=== PATIENT | female | born 1990 | race Caucasian/White ===

== ENCOUNTER → 2016-11-28 | Outpatient (CLI) | payer BC | LOC: M LAB 06:43 | PROVIDERS: ATTEND Advanced Practice Midwife | DX: Z34.83 Encounter for supervision of other normal pregnancy, third trimester (principal) ==

== ENCOUNTER → 2016-12-01 | Outpatient (CLI) | payer BC ==
--- NOTE | 2016-12-01 23:54 | REP ---
Clinical: Anatomical evaluation. Comparison: 11/01/2016 . Findings: Examination demonstrates a single live intrauterine in cephalic presentation. motion is identified by technologist. Placenta with 3.6 cm right anterior intramural fibroid is noted posteriorly and grade one without evidence for placenta previa or abruption. Amniotic fluid volume is normal. Cervix measures 3.6 cm in length and appears closed. No evidence for nuchal cord. Gestational age by LMP 27 weeks 3 day with AJAY eight 02/27/2017 . Gestational age by current measurements 28 weeks 3 days with AJAY 02/20/2017 FHR equals 153 beats per minute. Amniotic fluid index equals 15.7 cm Estimated weight 1279 grams ( 77th percentile). Anatomical assessment demonstrates normal structures including cranium, choroid plexus, cavum, cerebellum/posterior fossa, facial features, lungs, four-chamber heart/ventricular outflow tracts, diaphragm, stomach, cord insertion/three-vessel cord, kidneys/bladder. Impression: 1. Single live intrauterine in cephalic presentation demonstrating appropriate oval growth. 2. A 3.6 cm placental fibroid. 3. In conjunction with prior examination anatomical assessment is complete and normal. Signed by Eddy Clifton MD 12/01/2016 11:46 P
== END ==
LOC: M RAD 11:28
PROVIDERS: ATTEND Obstetrics & Gynecology
DX: Z34.82 Encounter for supervision of other normal pregnancy, second trimester (principal)

== ENCOUNTER 2016-12-15 15:54 | Outpatient (CLI) | payer BC ==
[~2016-12-15] VITALS: Ht 160 cm; Wt 95.0 kg
[2016-12-15 16:15] VITALS: BP 127/61
[2016-12-15] MEDS ORDERED: ACETAMINOPHEN 500 MG TAB PO PRN (17:00)
[2016-12-15 17:17] LABS: BASO % 0.2 % (0.0-1.0); EOS # 0.2 K/mm3 (0.0-0.50); EOS % 1.7 % (0.0-3.0); LARGE UNSTAINED CELL # 0.2 K/mm3 (0.0-0.4); LARGE UNSTAINED CELL % 1.6 % (0.0-4.0); LYMPH # 2.1 K/mm3 (1.5-6.5); LYMPH % 19.7 % (24.0-44.0); MEAN CORPUSCULAR HEMOGLOBIN 29.5 pg (27.0-33.0); MEAN CORPUSCULAR HGB CONC 34.8 g/dl (32.0-36.5); MEAN CORPUSCULAR VOLUME 84.6 fl (80.0-96.0); MONO # 0.4 K/mm3 (0.0-0.8); MONO % 3.7 % (0.0-5.0); NEUTROPHILS % 73.1 % (36.0-66.0); PLATELET COUNT, AUTOMATED 254 k/mm3 (150-450); RED CELL DISTRIBUTION WIDTH 12.7 % (11.5-14.5); WHITE BLOOD COUNT 10.9 K/mm3 (4.0-10.0)
[2016-12-15] MEDS ORDERED: ACET50TA PO (17:55)
[2016-12-15] MEDS ORDERED: PHEN1SUP6 PO (17:55)
[2016-12-15] MEDS ORDERED: DICL10TA PO (17:55)
--- NOTE | 2016-12-15 19:30 | REPUSA ---
CLINICAL HISTORY: Evaluate amniotic fluid level. TECHNIQUE: Realtime sonographic images were obtained in multiple projections. FINDINGS: Limited ultrasound evaluation reveals a live, intrauterine gestation in a breech presentation, dated 29 w 4 d . The heart rate is 147. The placenta is posterior and placenta previa is not identified. Subjectively, the amniotic fluid vol ume appears normal. The ZORAN is 19.3 which is normal for gestational age. Nuchal cord was not seen. Th e S/D ratio is 2.96, which is normal for gestational age. Anatomical survey was neither requested nor performed on this exam. There is an anterior fibroid seen measuring 2.6 x 1.6 x 2.7 cm. IMPRESSION: Single live IUP. Normal ZORAN. Thank you for your kind referral of this patient. We appreciate the opportunity to participate in thi s patient's care.
== END 2016-12-15 20:00 | disposition home or self-care (01) ==
LOC: M LDO 15:54
PROVIDERS: ATTEND Advanced Practice Midwife
DX: R10.31 Right lower quadrant pain (principal); Z3A.29 29 weeks gestation of pregnancy

== ENCOUNTER → 2016-12-26 | Outpatient (REF) | payer BC ==
[~2016-12-26] MED LIST: ACET50TA PO; DICL10TA PO; PHEN1SUP6 PO
== END ==
LOC: M LAB REF 13:24
PROVIDERS: ATTEND Advanced Practice Midwife
DX: Z34.83 Encounter for supervision of other normal pregnancy, third trimester (principal)

== ENCOUNTER 2017-02-03 09:01 | Outpatient (CLI) | payer BC ==
[~2017-02-03] VITALS: Ht 160 cm; Wt 97.0 kg
[~2017-02-03 09:01] MED LIST changes: -ACET500C PO; -FIOR1CAP PO; -OMEP10CASR PO; -REGL10TA6 PO; -ZITHTAB PO
[2017-02-03] MEDS ORDERED: REGL10TA6 PO (09:12)
[2017-02-03] MEDS ORDERED: OMEP10CASR PO (09:12)
[2017-02-03] MEDS ORDERED: ACET500C PO (09:13)
[2017-02-03 10:47] LABS: MEAN CORPUSCULAR HEMOGLOBIN 27.8 pg (27.0-33.0); MEAN CORPUSCULAR HGB CONC 33.4 g/dl (32.0-36.5); MEAN CORPUSCULAR VOLUME 83.2 fl (80.0-96.0); RED CELL DISTRIBUTION WIDTH 13.1 % (11.5-14.5); WHITE BLOOD COUNT 12.2 K/mm3 (4.0-10.0)
[2017-02-03 11:12] LABS: ALT/SGPT 22 U/L (12-78); AST/SGOT 18 U/L (15-37); BILIRUBIN,TOTAL 0.2 MG/DL (0.2-1.0); CREATININE FOR GFR 0.54 MG/DL (0.55-1.02); GLOMERULAR FILTRATION RATE > 60.0 (>60); URIC ACID 4.7 MG/DL (2.6-6.0)
[2017-02-03] MEDS ORDERED: FIORICET TAB PO ONE (11:45)
[2017-02-03] MEDS ORDERED: ZITHTAB PO (12:51)
== END 2017-02-03 12:45 | disposition home or self-care (01) ==
LOC: M LDO 09:01
PROVIDERS: ATTEND Obstetrics & Gynecology
DX: O13.3 Gestational [pregnancy-induced] hypertension without significant proteinuria, third trimester (principal); Z3A.36 36 weeks gestation of pregnancy

== ENCOUNTER → 2017-02-03 | Outpatient (REF) | payer BC ==
[~2017-02-03] MED LIST changes: +ACET500C PO; +FIOR1CAP PO; +OMEP10CASR PO; +REGL10TA6 PO; +ZITHTAB PO
== END ==
LOC: M LAB REF 13:20
PROVIDERS: ATTEND Advanced Practice Midwife
DX: Z34.83 Encounter for supervision of other normal pregnancy, third trimester (principal)

== ENCOUNTER → 2017-02-05 | Outpatient (CLI) | payer BC ==
[2017-02-05] VITALS (7 sets, daily range): BP systolic 119–133; BP diastolic 69–82
[~2017-02-05] MED LIST changes: +ACET500C PO; +FIOR1CAP PO; +IBUP-1114 PO; +OMEP10CASR PO; +REGL10TA6 PO; +ZITHTAB PO
== END | disposition home or self-care (01) ==
LOC: M LDO 13:19
PROVIDERS: ATTEND Obstetrics & Gynecology
DX: O13.3 Gestational [pregnancy-induced] hypertension without significant proteinuria, third trimester (principal); Z3A.36 36 weeks gestation of pregnancy

== ENCOUNTER 2017-02-06 11:51 | Inpatient (IN) | payer BC ==
[2017-02-06] VITALS (7 sets, daily range): BP systolic 121–139; BP diastolic 63–81
[~2017-02-06] VITALS: Ht 160 cm; Wt 96.0 kg
[~2017-02-06 11:51] MED LIST changes: -FIOR1CAP PO; -IBUP-1114 PO
[2017-02-06] MEDS ORDERED: FIOR1CAP PO (12:14)
[2017-02-06] MEDS ORDERED: LACTATED RINGER'S 1000 ML IV STA (12:29)
[2017-02-06] MEDS ORDERED: miSOPROStol 50 MCG 1/2 TAB (S0191) SL ONE ×2 (13:00→18:30)
[2017-02-06 14:18] LABS: MEAN CORPUSCULAR HEMOGLOBIN 28.7 pg (27.0-33.0); MEAN CORPUSCULAR HGB CONC 34.5 g/dl (32.0-36.5); MEAN CORPUSCULAR VOLUME 83.3 fl (80.0-96.0); RED CELL DISTRIBUTION WIDTH 13.4 % (11.5-14.5); WHITE BLOOD COUNT 11.2 K/mm3 (4.0-10.0)
[2017-02-06 14:23] LABS: ALT/SGPT 28 U/L (12-78); AST/SGOT 23 U/L (15-37); BILIRUBIN,TOTAL 0.1 MG/DL (0.2-1.0); CREATININE FOR GFR 0.62 MG/DL (0.55-1.02); GLOMERULAR FILTRATION RATE > 60.0 (>60); URIC ACID 5.3 MG/DL (2.6-6.0)
[2017-02-06] MEDS ORDERED: miSOPROStol 25 MCG 1/4 TAB (S0191) PV ONE (23:00)
[2017-02-06] MEDS ORDERED: diphenhydrAMINE 25 MG CAP PO ONE (23:00)
[2017-02-07] VITALS (42 sets, daily range): BP systolic 107–187; BP diastolic 56–92
[2017-02-07] MEDS ORDERED: miSOPROStol 25 MCG 1/4 TAB (S0191) PV ONE (05:45)
[2017-02-07] MEDS ORDERED: OXYTOCIN DRIP 30 UNITS in APPROPRIATE DILUENT 1 EA IV SCH (13:15)
[2017-02-07] MEDS: LR 1,000 ML IV SCH (13:48)
[2017-02-07] MEDS ORDERED: ACETAMINOPHEN 500 MG TAB PO PRN (14:00)
[2017-02-07] MEDS ORDERED: LACTATED RINGER'S 1000 ML IV ONE (20:30)
[2017-02-07 20:49] LABS: MEAN CORPUSCULAR HEMOGLOBIN 27.5 pg (27.0-33.0); MEAN CORPUSCULAR HGB CONC 33.7 g/dl (32.0-36.5); MEAN CORPUSCULAR VOLUME 81.4 fl (80.0-96.0); RED CELL DISTRIBUTION WIDTH 13.1 % (11.5-14.5); WHITE BLOOD COUNT 13.5 K/mm3 (4.0-10.0)
[2017-02-07] MEDS ORDERED: FENTANYL 2MCG/ML ROPIVACAINE 0.2% NACL 250 ML CADD As Ordered ONE (20:52)
[2017-02-07] MEDS ORDERED: diphenhydrAMINE INJ 50MG/ML VIAL (J1200) IV PRN (22:45)
[2017-02-07] MEDS ORDERED: ePHEDrine SULFATE 25 MG/5 ML(5MG/ML) SYRINGE IV PRN (22:45)
[2017-02-07] MEDS ORDERED: EPIDURAL COMMENT XX SCH (22:45)
[2017-02-07] MEDS ORDERED: REFRIGERATOR IV KEYS XX PRN (22:45)
[2017-02-07] MEDS ORDERED: NALOXONE INJ 0.4 MG/1 ML VIAL (J2310) IV PRN (22:45)
[2017-02-07] MEDS ORDERED: FENTANYL/ROPIVACAINE/NACL CADD 250 ML EPIDURAL SCH (22:45)
[2017-02-07] MEDS ORDERED: ONDANSETRON 4MG/2ML VIAL (J2405) IV PRN (22:45)
[2017-02-07] MEDS ORDERED: LACTATED RINGER'S 1000 ML IV PRN (22:45)
[2017-02-07] MEDS ORDERED: EPIDURAL/PCA KEYS XX PRN (22:45)
[2017-02-08] VITALS (24 sets, daily range): BP systolic 108–148; BP diastolic 57–80
[2017-02-08] MEDS: LR 1,000 ML IV SCH (00:33)
[2017-02-08] MEDS ORDERED: OXYTOCIN DRIP 30 UNITS in APPROPRIATE DILUENT 1 EA IV SCH (07:58)
[2017-02-08] MEDS ORDERED: ACETAMINOPHEN 500 MG TAB PO PRN (08:00)
[2017-02-08] MEDS ORDERED: RHOGAM 300 MCG (1500 IU) INJ (J2790) IM SCH (08:00)
[2017-02-08] MEDS ORDERED: DOCUSATE SODIUM 100 MG CAP PO PRN (08:00)
[2017-02-08] MEDS ORDERED: IBUPROFEN 800 MG TAB PO PRN (08:00)
[2017-02-08] MEDS ORDERED: MEASLES,MUMPS,RUBELLA VACCINE INJ (MMR-II) (90707) SC SCH (08:00)
[2017-02-08] MEDS ORDERED: DIBUCAINE 1% OINTMENT 30GM TOP PRN (08:00)
--- NOTE | 2017-02-08 08:15 | DN ---
DATE: 02/08/2017 Niurka is a 1, para 1-0-1-1 now who was admitted to labor and delivery for induction of labor due to gestational hypertension. She did utilize an epidural for her labor coping. She progressed to full dilation at 0610 hours, pushed to a normal spontaneous vaginal delivery of a live female in OA position with restitution to LOT position at 0717 hours. There was no nuchal cord. The shoulders delivered with gentle downward guidance and corpus immediately followed. [place] was placed on maternal abdomen crying and active. Cord was clamped times two and cut by the father of the baby. Cord gases and cord blood was obtained. After approximately 30 minutes of expectant management, Dr. Turcios was consulted to come in for manual removal of retained placenta. Manual removal was made at 0749 hours without incident. Estimated blood loss 350 mL. Uterine hemostasis achieved with IV Pitocin, rapid infusion and uterine fundal massage. female weighed 6 pounds 6 ounces, 2888 grams, scores of 8 and 9. Mom plans to breastfeed. Family is undecided as to what to name their daughter as of this time. At the close of delivery, lap counts, instrument counts, needle counts were correct and verified.
[2017-02-08 08:31] LABS: CORD GAS ABE A -8.4; CORD GAS HCO3 A 19.5 MEQ/L; CORD GAS O2 SAT A 67.2 %; CORD GAS PCO2 A 49.2 mmHg; CORD GAS PH A 7.217 UNITS; CORD GAS PO2 A 31.4 mmHg; CORD GAS SBC A 17.1 MEQ/L; CORD GAS TCO2 A 21.1 MEQ/L
[2017-02-08 08:33] LABS: CORD GAS ABE V -6.8; CORD GAS HCO3 V 19.4 MEQ/L; CORD GAS O2 SAT V 69.2 %; CORD GAS PCO2 V 41.6 mmHg; CORD GAS PH V 7.287 UNITS; CORD GAS PO2 V 30.2 mmHg; CORD GAS SBC V 18.4 MEQ/L; CORD GAS TCO2 V 20.7 MEQ/L
[2017-02-08] MEDS: PRENATAL VITAMIN TAB PO SCH (09:00)
[2017-02-09 06:09] VITALS: BP 123/69
[2017-02-09] MEDS: PRENATAL VITAMIN TAB PO SCH (09:00)
[2017-02-09] MEDS ORDERED: IBUP-1114 PO (10:03)
== END 2017-02-09 12:10 | disposition home or self-care (01) | DRG 560 ==
LOC: M LDI 11:51 → M OBS 02-08 09:53
PROVIDERS: ADMIT Obstetrics & Gynecology; ATTEND Obstetrics & Gynecology
PROC: 3E0D7GC Introduction of Other Therapeutic Substance into Mouth and Pharynx, Via Natural or Artificial Opening (ICD-10-PCS; 2017-02-06)
PROC: 10E0XZZ Delivery of Products of Conception, External Approach (ICD-10-PCS; principal; 2017-02-08)
DX: O13.4 Gestational [pregnancy-induced] hypertension without significant proteinuria, complicating childbirth (principal); Z37.0 Single live birth; Z3A.37 37 weeks gestation of pregnancy; Z79.899 Other long term (current) drug therapy

== ENCOUNTER 2017-06-21 12:32 | Outpatient (RCR) | payer BC ==
[~2017-06-21 12:32] MED LIST changes: +FIOR1CAP PO; +IBUP-1114 PO
== END 2017-06-26 ==
LOC: M PT 12:32
PROVIDERS: ATTEND Physician Assistant Medical
DX: Z51.89 Encounter for other specified aftercare (principal); M25.511 Pain in right shoulder

== ENCOUNTER 2017-07-19 12:30 | Outpatient (RCR) | payer BC | END 2017-07-27 | LOC: M PT 12:30 | PROVIDERS: ATTEND Physician Assistant Medical | DX: Z51.89 Encounter for other specified aftercare (principal); M25.511 Pain in right shoulder ==

== ENCOUNTER → 2017-12-07 | Outpatient (REF) | payer BC ==
[2017-12-07 20:15] LABS: FREE T4 0.87 NG/DL (0.76-1.46)
[2017-12-07 20:15] LABS: THYROID STIMULATING HORMONE 0.718 uIU/ML (0.358-3.740)
== END ==
LOC: M SFHCADAM 14:08
DX: K59.00 Constipation, unspecified (principal); E66.09 Other obesity due to excess calories
CPT/HCPCS: 84443

== ENCOUNTER → 2018-03-13 | Outpatient (CLI) | payer BC ==
[2018-03-14 08:09] LABS: HERPES ZOSTER, VARICELLA IgG 3786 index (Immune >165)
== END ==
LOC: M LAB 12:45
DX: Z20.820 Contact with and (suspected) exposure to varicella (principal)
CPT/HCPCS: 86787

== ENCOUNTER → 2018-12-17 | Outpatient (REF) | payer OTHER ==
[~2018-12-17] MED LIST changes: -ACET50TA PO; +MAPA500T2 PO
[2018-12-22 14:47] LABS: HPV HYBRID CAPTURE II Negative (Negative)
== END ==
LOC: M LAB REF 10:54
PROVIDERS: ATTEND Advanced Practice Midwife
DX: Z12.4 Encounter for screening for malignant neoplasm of cervix (principal)

== ENCOUNTER → 2019-02-06 | Outpatient (REF) | payer OTHER | LOC: M SFHCLERA 20:15 | PROVIDERS: ATTEND Nurse Practitioner Family | DX: R53.81 Other malaise (principal) ==

== ENCOUNTER → 2019-06-17 | Outpatient (REF) | payer OTHER | LOC: M SFHCADAM 19:30 | PROVIDERS: ATTEND Physician Assistant Medical | DX: J02.9 Acute pharyngitis, unspecified (principal) ==

== ENCOUNTER → 2019-11-28 | Outpatient (REF) | payer OTHER | LOC: M LAB REF 18:09 | PROVIDERS: ATTEND Dermatology | DX: D23.30 Other benign neoplasm of skin of unspecified part of face (principal); D23.62 Other benign neoplasm of skin of left upper limb, including shoulder; D23.5 Other benign neoplasm of skin of trunk ==

== ENCOUNTER → 2020-05-01 | Outpatient (REF) | payer OTHER ==
[2020-05-01 17:56] LABS: BASO # 0.1 10^3/uL (0.0-0.2); BASO % 0.6 % (0.0-1.0); EOS # 0.2 10^3/uL (0.0-0.5); HEMATOCRIT 43.3 % (36.0-47.0); HEMOGLOBIN 14.7 g/dl (12.0-15.5); LYMPH # 2.5 10^3/uL (1.5-5.0); MEAN CORPUSCULAR HEMOGLOBIN 29.9 pg (27.0-33.0); MEAN CORPUSCULAR HGB CONC 33.9 g/dl (32.0-36.5); MEAN CORPUSCULAR VOLUME 88.2 fl (80.0-96.0); MONO # 0.6 10^3/uL (0.0-0.8); MONO % 7.1 % (0.0-5.0); NEUTROPHILS # 4.9 10^3/uL (1.5-8.5); NEUTROPHILS % 60.1 % (36.0-66.0); PLATELET COUNT, AUTOMATED 301 10^3/uL (150-450); RED BLOOD COUNT 4.91 10^6/uL (4.00-5.40); WHITE BLOOD COUNT 8.2 10^3/uL (4.0-10.0)
== END ==
LOC: M SFHCADAM 15:44
PROVIDERS: ATTEND Physician Assistant Medical
DX: R53.83 Other fatigue (principal)

== ENCOUNTER → 2020-09-04 | Outpatient (CLI) | payer SELFPAY | LOC: M LABSMTC 13:00 | PROVIDERS: ATTEND Pediatrics | DX: Z20.828 Contact with and (suspected) exposure to other viral communicable diseases (principal) ==

== ENCOUNTER → 2020-12-30 | Outpatient (REF) | payer OTHER | LOC: M LAB REF 18:47 | PROVIDERS: ATTEND Dermatology | DX: D23.5 Other benign neoplasm of skin of trunk (principal) ==

== ENCOUNTER → 2021-04-11 | Outpatient (REF) | LOC: M LABSMTC 11:00 | PROVIDERS: ATTEND Pediatrics | DX: Z20.822 Contact with and (suspected) exposure to COVID-19 (principal) ==

== ENCOUNTER → 2021-12-01 | Outpatient (REF) | LOC: M LABSMTC 10:59 | PROVIDERS: ATTEND Family Medicine | DX: Z11.52 Encounter for screening for COVID-19 (principal) ==

== ENCOUNTER → 2021-12-04 | Outpatient (REF) | LOC: M EMP 09:35 | PROVIDERS: ATTEND Family Medicine | DX: Z20.822 Contact with and (suspected) exposure to COVID-19 (principal) ==

== ENCOUNTER → 2021-12-06 | Outpatient (REF) | LOC: M LABSMTC 13:14 | PROVIDERS: ATTEND Family Medicine | DX: Z20.822 Contact with and (suspected) exposure to COVID-19 (principal) ==

== ENCOUNTER → 2021-12-30 | Outpatient (REF) | payer OTHER, BC | LOC: M LAB REF 17:10 | PROVIDERS: ATTEND Nurse Practitioner Family | DX: D22.0 Melanocytic nevi of lip (principal); D22.39 Melanocytic nevi of other parts of face; D48.9 Neoplasm of uncertain behavior, unspecified ==

== ENCOUNTER → 2022-04-12 | Outpatient (REF) | payer BC, OTHER | LOC: M SFHCWAGY 12:58 | PROVIDERS: ATTEND Specialist | DX: Z12.4 Encounter for screening for malignant neoplasm of cervix (principal) | CPT/HCPCS: 87624; G0123 ==

== ENCOUNTER → 2022-05-25 | Outpatient (REF) | payer BC, OTHER | LOC: M WUC 12:09 | PROVIDERS: ATTEND Student in an Organized Health Care Education/Training Program | DX: J02.9 Acute pharyngitis, unspecified (principal) ==

== ENCOUNTER → 2022-12-15 | Outpatient (REF) | LOC: M EMP 08:52 | PROVIDERS: ATTEND Family Medicine | DX: Z11.52 Encounter for screening for COVID-19 (principal) ==

== ENCOUNTER → 2022-12-18 | Outpatient (REF) | LOC: M LABSMTC 10:29 | PROVIDERS: ATTEND Family Medicine | DX: Z20.822 Contact with and (suspected) exposure to COVID-19 (principal) ==

== ENCOUNTER → 2022-12-19 | Outpatient (REF) | LOC: M EMP 09:35 | PROVIDERS: ATTEND Family Medicine | DX: Z20.822 Contact with and (suspected) exposure to COVID-19 (principal) ==

== ENCOUNTER 2023-03-02 08:17 | Emergency (ER) | payer BC ==
[~2023-03-02] VITALS: Ht 160 cm; Wt 86.8 kg
[2023-03-02 09:19] LABS: BASO % 0.7 % (0.0-1.0); EOS # 0.1 10^3/uL (0.0-0.5); EOS % 2.5 % (0.0-3.0); HEMATOCRIT 39.5 % (36.0-47.0); HEMOGLOBIN 13.7 g/dl (12.0-15.5); LYMPH # 1.8 10^3/uL (1.5-5.0); LYMPH % 31.7 % (24.0-44.0); MEAN CORPUSCULAR HEMOGLOBIN 30.9 pg (27.0-33.0); MEAN CORPUSCULAR HGB CONC 34.7 g/dl (32.0-36.5); MEAN CORPUSCULAR VOLUME 89.2 fl (80.0-96.0); MONO # 0.4 10^3/uL (0.0-0.8); MONO % 7.3 % (2.0-8.0); NEUTROPHILS # 3.3 10^3/uL (1.5-8.5); NEUTROPHILS % 57.6 % (36.0-66.0); PLATELET COUNT, AUTOMATED 251 10^3/uL (150-450); RED BLOOD COUNT 4.43 10^6/uL (4.00-5.40); WHITE BLOOD COUNT 5.7 10^3/uL (4.0-10.0)
[2023-03-02 09:41] LABS: HCG, SERUM QUALITATIVE NEGATIVE (NEGATIVE)
[2023-03-02 09:42] LABS: BLOOD UREA NITROGEN 9 MG/DL (9-23); CARBON DIOXIDE LEVEL 31 MMOL/L (20-31); CHLORIDE LEVEL 103 MMOL/L (98-107); CREATININE FOR GFR 0.59 MG/DL (0.55-1.30); GLOMERULAR FILTRATION RATE > 60.0 (>60); GLUCOSE, FASTING 76 MG/DL (60-100); SODIUM LEVEL 140 MMOL/L (136-145)
[2023-03-02 09:44] LABS: THYROID STIMULATING HORMONE 0.608 uIU/ML (0.55-4.78)
[2023-03-02 11:31] VITALS: BP 121/64
== END 2023-03-02 11:48 | disposition home or self-care (01) ==
LOC: M ED 08:17
DX: R55 Syncope and collapse (principal); K21.9 Gastro-esophageal reflux disease without esophagitis; F41.9 Anxiety disorder, unspecified; F32.9 Major depressive disorder, single episode, unspecified; Z79.899 Other long term (current) drug therapy; Z88.0 Allergy status to penicillin; Z88.1 Allergy status to other antibiotic agents

== ENCOUNTER → 2023-05-30 | Outpatient (REF) | payer BC | LOC: M LAB REF 09:45 | PROVIDERS: ATTEND Physician Assistant | DX: R30.0 Dysuria (principal) ==

== ENCOUNTER → 2023-07-14 | Outpatient (CLI) | payer BC ==
[2023-07-14 13:39] LABS: ALBUMIN 4.2 G/DL (3.2-5.2); BILIRUBIN,DIRECT 0.1 MG/DL (<0.4); BILIRUBIN,TOTAL 0.4 MG/DL (0.3-1.2); TOTAL PROTEIN 7.2 G/DL (5.7-8.2)
[2023-07-19 12:08] LABS: ALPHA 1 ANTITRYPSIN 137 mg/dL (100-188); CERULOPLASMIN 23.9 mg/dL (19.0-39.0); LIVER-KIDNEY MICROSOMAL ABY <20.1 Units (0.0-20.0); TISSUE TRANSGLUTAMINASE IgA <2 U/mL (0-3)
== END ==
LOC: M WUC 09:58
PROVIDERS: ATTEND Nurse Practitioner Family
DX: R94.5 Abnormal results of liver function studies (principal); K21.9 Gastro-esophageal reflux disease without esophagitis

== ENCOUNTER 2023-10-12 09:50 | Observation (INO) | payer BC ==
[~2023-10-12] VITALS: Ht 160 cm; Wt 82.9 kg
[~2023-10-12 09:50] MED LIST changes: +HEPARIN SOD (PORCINE) 5000UNITS/ML 1ML VIAL/SYRINGE SQ ONE; +OMEP40CA5 PO; +SERT50TA29 PO; +SPIR50TA4 PO
[2023-10-12] MEDS ORDERED: SCOPOLAMINE 1MG TRANSDERMAL PATCH TOP ONE (10:20)
[2023-10-12] MEDS ORDERED: LR 1,000 ML IV SCH ×2 (10:20→16:40)
[2023-10-12] MEDS ORDERED: fentaNYL 250 MCG/5 ML INJECTION As Ordered ONE (10:41)
[2023-10-12] MEDS ORDERED: dexmedeTOMIDine (4MCG/ML)200MCG/50ML BTL (PRECEDEX) As Ordered ONE (10:41)
[2023-10-12] MEDS ORDERED: propofoL 200 MG/20 ML VIAL As Ordered ONE (10:41)
[2023-10-12] MEDS ORDERED: LIDOCAINE 2% 100MG/5ML SDV (FOR ANES.) As Ordered ONE (10:41)
[2023-10-12] MEDS ORDERED: MIDAZOLAM INJ 2MG/2ML VIAL As Ordered ONE (10:41)
[2023-10-12] MEDS ORDERED: ONDANSETRON 4MG 2ML VIAL As Ordered ONE ×2 (10:41→13:14)
[2023-10-12] MEDS ORDERED: ROCURONIUM BROMIDE 50MG/5ML VIAL As Ordered ONE ×3 (10:41→14:44)
[2023-10-12] MEDS ORDERED: CLINDAMYCIN 900 MG in IV 1 EA IV ONE ×2 (11:35→18:29)
[2023-10-12] MEDS ORDERED: GENTAMICIN SULF 80MG/2ML VIAL As Ordered ONE (11:44)
[2023-10-12] MEDS ORDERED: LIDOCAINE 1% MDV 20ML VIAL As Ordered ONE (12:07)
[2023-10-12] MEDS ORDERED: EPINEPHrine INJ 1 MG/ML 1ML AMP As Ordered ONE (12:07)
[2023-10-12] MEDS ORDERED: PHENYLephrine 500MCG 5ML (100MCG/ML) SYRINGE As Ordered ONE (12:49)
[2023-10-12] MEDS ORDERED: SUGAMMADEX SODIUM 500 MG/5 ML VIAL (BRIDION) As Ordered ONE (13:11)
[2023-10-12] MEDS ORDERED: ACETAMINOPHEN 1000MG 100ML IV BAG As Ordered ONE (13:11)
[2023-10-12] MEDS ORDERED: HYDROmorphone HCL 2MG/ML 1ML VIAL As Ordered ONE (13:11)
[2023-10-12] MEDS ORDERED: ePHEDrine SULFATE 25 MG/5 ML(5MG/ML) SYRINGE As Ordered ONE (15:01)
[2023-10-12] MEDS ORDERED: ONDANSETRON 4MG 2ML VIAL IV PRN ×2 (16:05→16:40)
[2023-10-12] MEDS ORDERED: traMADol 50 MG TAB PO PRN (16:05)
[2023-10-12] MEDS ORDERED: PERCOCET 5MG/325MG TAB PO PRN (16:05)
[2023-10-12] MEDS ORDERED: fentaNYL 100 MCG/2 ML INJECTION IV PRN (16:40)
[2023-10-12] MEDS ORDERED: oxyCODONE 5MG TAB PO PRN (16:40)
[2023-10-12] MEDS ORDERED: HYDROMORPHONE HCL 0.5 MG/ 0.5 ML SYRINGE IV PRN (16:40)
[2023-10-12 17:59] VITALS: BP 115/76; TEMP 97.9; O2SAT 98
[2023-10-12] MEDS: LR 1,000 ML IV SCH (18:16)
[2023-10-12 18:52] VITALS: BP 115/74; TEMP 97.7; O2SAT 93
[2023-10-12 20:32] VITALS: BP 115/75; TEMP 97.2; O2SAT 95
[2023-10-12] MEDS: ACETAMINOPHEN TAB 650MG DOSE (2X325MG) PO PRN (20:38)
[2023-10-12 21:33] VITALS: BP 105/68; TEMP 97.6
[2023-10-12 22:33] VITALS: BP 99/66; TEMP 97.5; O2SAT 92
[2023-10-12 23:33] VITALS: BP 92/54; TEMP 97; O2SAT 91
[2023-10-13] MEDS: LR 1,000 ML IV SCH (05:04)
[2023-10-13] MEDS: ACETAMINOPHEN TAB 650MG DOSE (2X325MG) PO PRN ×2 (05:20→09:53)
[2023-10-13 06:37] VITALS: BP 106/64; TEMP 98.2; O2SAT 95
[2023-10-13] MEDS ORDERED: HOME MED LIST COMPLETE! XX SCH (08:20)
[2023-10-13] MEDS ORDERED: TRAM50TA2 PO (09:28)
== END 2023-10-13 10:45 | disposition home or self-care (01) ==
LOC: M SDC 09:50 → M ED INP 16:01 → M MS5PR 17:40
PROVIDERS: ADMIT Plastic Surgery Surgery of the Hand; ATTEND Plastic Surgery Surgery of the Hand
DX: N62 Hypertrophy of breast (principal); M54.6 Pain in thoracic spine; M95.4 Acquired deformity of chest and rib; K21.9 Gastro-esophageal reflux disease without esophagitis; F41.9 Anxiety disorder, unspecified; F32.A Depression, unspecified; Z92.3 Personal history of irradiation; Z79.899 Other long term (current) drug therapy; Z88.0 Allergy status to penicillin; Z88.1 Allergy status to other antibiotic agents
CPT/HCPCS: 19318; 81025; 87635; 88300; 88305; 96365; C9290; J0131; J0171; J0665; J0737; J1100; J1170; J1580; J2250; J2371; J2405; J3010

== ENCOUNTER → 2023-11-17 | Outpatient (REF) ==
[~2023-11-17] MED LIST changes: -HEPARIN SOD (PORCINE) 5000UNITS/ML 1ML VIAL/SYRINGE SQ ONE; +TRAM50TA2 PO
== END ==
LOC: M EMP 14:03
PROVIDERS: ATTEND Family Medicine
DX: Z11.52 Encounter for screening for COVID-19 (principal)

== ENCOUNTER → 2024-01-05 | Outpatient (REF) | payer BC ==
[2024-01-05 18:42] LABS: ALBUMIN 4.5 G/DL (3.2-5.2); ALKALINE PHOSPHATASE 85 U/L (46-116); ALT/SGPT 49 U/L (7.0-40); AST/SGOT 17 U/L (<34); BILIRUBIN,DIRECT < 0.1 MG/DL (<0.4); BILIRUBIN,TOTAL 0.3 MG/DL (0.3-1.2); TOTAL PROTEIN 7.7 G/DL (5.7-8.2)
== END ==
LOC: M LAB REF 17:19
PROVIDERS: ATTEND Internal Medicine Gastroenterology
DX: R94.5 Abnormal results of liver function studies (principal); K59.00 Constipation, unspecified; K21.9 Gastro-esophageal reflux disease without esophagitis

== ENCOUNTER → 2024-05-29 | Outpatient (REF) | payer BC ==
[2024-06-04 13:41] LABS: HPV APTIMA Not Detected (Not Detected)
== END ==
LOC: M PLALAB 11:42
PROVIDERS: ATTEND Advanced Practice Midwife
DX: Z12.4 Encounter for screening for malignant neoplasm of cervix (principal)
CPT/HCPCS: 87624; G0123

== ENCOUNTER → 2024-07-11 | Outpatient (CLI) | payer BC | LOC: M SOG 12:53 | PROVIDERS: ATTEND Physician Assistant | DX: M25.521 Pain in right elbow (principal) ==

== ENCOUNTER → 2025-02-28 | Outpatient (REF) | payer BC ==
[2025-02-28 13:38] LABS: HEMATOCRIT 42.7 % (36.0-47.0); HEMOGLOBIN 14.6 g/dl (12.0-15.5); MEAN CORPUSCULAR HEMOGLOBIN 30.2 pg (27.0-33.0); MEAN CORPUSCULAR HGB CONC 34.2 g/dl (32.0-36.5); MEAN CORPUSCULAR VOLUME 88.2 fl (80.0-96.0); PLATELET COUNT, AUTOMATED 288 10^3/uL (150-450); RED BLOOD COUNT 4.84 10^6/uL (4.00-5.40); WHITE BLOOD COUNT 6.9 10^3/uL (4.0-10.0)
[2025-02-28 14:02] LABS: HEMOGLOBIN A1c 4.6 % (4.0-6.0)
[2025-02-28 14:14] LABS: ALBUMIN 4.5 G/DL (3.2-5.2); ALKALINE PHOSPHATASE 94 U/L (35-104); ALT/SGPT 35 U/L (7.0-40); AST/SGOT 19 U/L (<34); BILIRUBIN,TOTAL 0.5 MG/DL (0.3-1.2); BLOOD UREA NITROGEN 12 MG/DL (9-23); CALCIUM LEVEL 10.2 MG/DL (8.5-10.1); CARBON DIOXIDE LEVEL 30 MMOL/L (20-31); CHLORIDE LEVEL 104 MMOL/L (98-107); CHOLESTEROL LEVEL 258 MG/DL (<200); CHOLESTEROL RISK RATIO 4.56 (<5); GLOMERULAR FILTRATION RATE > 60.0 (>60); GLUCOSE, FASTING 69 MG/DL (60-100); HDL CHOLESTEROL 56.5 MG/DL (>40); LDL CHOLESTEROL 173.1 MG/DL (<100); NON-HDL-C 201.5 MG/DL; POTASSIUM SERUM 4.6 MMOL/L (3.5-5.1); SODIUM LEVEL 140 MMOL/L (136-145); THYROID STIMULATING HORMONE 0.696 uIU/ML (0.55-4.78); TOTAL PROTEIN 7.9 G/DL (5.7-8.2); TRIGLYCERIDES LEVEL 142 MG/DL (<150)
[2025-02-28 14:15] LABS: FREE T4 1.09 NG/DL (0.89-1.76)
== END ==
LOC: M LAB REF 12:55
PROVIDERS: ATTEND Physician Assistant
DX: R94.5 Abnormal results of liver function studies (principal); F41.1 Generalized anxiety disorder

== ENCOUNTER → 2025-02-28 | Outpatient (REF) | payer BC ==
[2025-02-28 14:36] LABS: ALBUMIN 4.5 G/DL (3.2-5.2); BILIRUBIN,DIRECT 0.1 MG/DL (<0.4); BILIRUBIN,TOTAL 0.5 MG/DL (0.3-1.2)
== END ==
LOC: M LAB REF 12:58
DX: R94.5 Abnormal results of liver function studies (principal); K21.9 Gastro-esophageal reflux disease without esophagitis; K59.00 Constipation, unspecified

== ENCOUNTER → 2025-03-14 | Outpatient (REF) | payer BC ==
[2025-03-14 18:28] LABS: APPEARANCE, URINE HAZY (CLEAR); BACTERIA, URINE AUTO 1+ (NEGATIVE); BILIRUBIN, URINE AUTO NEGATIVE (NEGATIVE); BLOOD, URINE BLOOD 1+ (NEGATIVE); COLOR, URINE YELLOW (YELLOW); GLUCOSE, URINE (UA) AUTO NEGATIVE (NEGATIVE); KETONE, URINE AUTO NEGATIVE (NEGATIVE); LEUKOCYTE ESTERASE, URINE AUTO 2+ (NEGATIVE); NITRITE, URINE AUTO NEGATIVE (NEGATIVE); PROTEIN, URINE AUTO NEGATIVE (NEGATIVE); RBC, URINE AUTO 6 /HPF (0-3); SPECIFIC GRAVITY URINE AUTO 1.014 (1.002-1.035); SQUAMOUS EPITHELIAL CELL UR AU 5 /HPF (0-6); WBC, URINE AUTO 52 /HPF (0-3)
== END ==
LOC: M LAB REF 17:14
PROVIDERS: ATTEND Physician Assistant
DX: N39.0 Urinary tract infection, site not specified (principal)

== ENCOUNTER → 2025-07-04 | Outpatient (CLI) | payer BC | LOC: M SOG 13:53 | PROVIDERS: ATTEND Physician Assistant | DX: M79.644 Pain in right finger(s) (principal) ==

== ENCOUNTER → 2025-07-10 | Outpatient (CLI) | payer BC ==
[~2025-07-10] MED LIST changes: +SEMA0.5P SQ
== END ==
LOC: M SOG 15:37
PROVIDERS: ATTEND Orthopaedic Surgery Hand Surgery
DX: M79.644 Pain in right finger(s) (principal)

== ENCOUNTER 2025-07-11 09:24 | Day surgery (SDC) | payer BC ==
[~2025-07-11] VITALS: Ht 160 cm; Wt 70.3 kg
[~2025-07-11 09:24] MED LIST changes: -SEMA0.5P SQ
[2025-07-11] MEDS: LIDOCAINE 1% MDV 20 ML VIAL XX ONE (09:35)
[2025-07-11] MEDS: SODIUM BICARBONATE 8.4% INJ 50MEQ/50ML VIAL XX ONE (09:35)
[2025-07-11] MEDS ORDERED: SEMA0.5P SQ (09:52)
[2025-07-11 10:35] VITALS: BP 101/56; TEMP 97.2; O2SAT 99
== END 2025-07-11 10:47 | disposition home or self-care (01) ==
LOC: M SDC 09:24
PROVIDERS: ATTEND Orthopaedic Surgery Hand Surgery
DX: S62.616A Displaced fracture of proximal phalanx of right little finger, initial encounter for closed fracture (principal); X58.XXXA Exposure to other specified factors, initial encounter; Y92.89 Other specified places as the place of occurrence of the external cause; Y93.9 Activity, unspecified; Y99.9 Unspecified external cause status

== ENCOUNTER → 2025-08-08 | Outpatient (CLI) | payer BC ==
[~2025-08-08] MED LIST changes: +SEMA0.5P SQ
== END ==
LOC: M SOG 07:35
PROVIDERS: ATTEND Physician Assistant
DX: M79.644 Pain in right finger(s) (principal)

== ENCOUNTER → 2025-10-07 | Outpatient (REF) | payer BC ==
[2025-10-07 13:46] LABS: PLATELET COUNT, AUTOMATED 240 10^3/uL (150-450)
[2025-10-07 14:23] LABS: LUTEINIZING HORMONE 5.2 mIU/ML
[2025-10-07 14:24] LABS: ESTRADIOL 67.3 PG/ML
[2025-10-08 10:33] LABS: SEX HORMONE BINDING GLOBULIN 93.0 nmol/L (17-124)
[2025-10-12 17:33] LABS: TESTOSTERONE FREE (DIRECT) 1.1 pg/mL (0.1-6.4); TESTOSTERONE TOTAL FOR T&D 13.0 ng/dL (2-45)
== END ==
LOC: M LAB REF 13:01
PROVIDERS: ATTEND Physician Assistant
DX: R53.83 Other fatigue (principal)